=== PATIENT | female | born 1955 | race African-American/Black ===

== ENCOUNTER 2017-02-15 21:30 | Inpatient (IN) | payer OTHER ==
[~2017-02-15] VITALS: Ht 165.1 cm; Wt 113.4 kg
[~2017-02-15 21:30] MED LIST: GLYB5TAB7 PO; INSU3INS6 SQ; NOVOLOG SUBCUT
[2017-02-16] MEDS ORDERED: PIPERACILLIN/TAZOBACTAM 3.375GM/50ML PREMIX IV ONE (01:00)
[2017-02-16 01:32] LABS: HEMATOCRIT 29.4 % (36.0-48.0); HEMOGLOBIN 9.7 g/dL (12.0-16.0); MEAN CORPUSCULAR VOLUME 79.3 fL (81.0-99.0); PLATELET 384 x1000/uL (130-400); RED BLOOD CELL COUNT 3.71 mill/uL (4.2-5.4); RED CELL DISTRIBUTION WIDTH 13.4 % (11.6-14.6)
[2017-02-16] MEDS ORDERED: PIPERACILLIN/TAZ 3.375G PREMIX 50 ML IV NR (03:00)
[2017-02-16] MEDS ORDERED: IPRATROPIUM/ALBUTEROL 0.5-3(2.5)MG/3ML NEB INH PRN (14:15)
[2017-02-16] MEDS ORDERED: HYDROCODONE/ACETAMINOPHEN 5/325MG TABLET PO PRN (14:15)
[2017-02-16] MEDS ORDERED: ONDANSETRON HCL 4MG/2ML VIAL IV PRN (14:15)
[2017-02-16] MEDS ORDERED: ENOXAPARIN 40MG/0.4ML SYR SUBCUT SCH (14:15)
[2017-02-16] MEDS ORDERED: VANCOMYCIN 1 G PREMIX 200 ML IV SCH (14:15)
[2017-02-16 16:25] VITALS: BP 115/59
[2017-02-16] MEDS ORDERED: SPIR25TA4 PO (17:28)
[2017-02-16] MEDS ORDERED: LEVVL SQ (17:28)
[2017-02-16] MEDS ORDERED: ASPI-1159 PO (17:28)
[2017-02-16] MEDS ORDERED: CARV6.2548 PO (17:28)
[2017-02-16] MEDS ORDERED: FURO40TA5 PO (17:28)
[2017-02-16] MEDS ORDERED: HYDR-4134 PO (17:28)
[2017-02-16] MEDS ORDERED: LOSA50TA20 PO (17:28)
[2017-02-16] MEDS: GLYBURIDE 5MG TABLET PO SCH (18:19)
[2017-02-16] MEDS: FUROSEMIDE 40MG TABLET PO SCH (18:19)
[2017-02-16] MEDS: PIPERACILLIN/TAZ 3.375G PREMIX 50 ML IV SCH (18:19)
[2017-02-16] MEDS ORDERED: DEXTROSE 50% WATER 50ML SYRINGE IV PRN (18:30)
[2017-02-16 20:00] VITALS: BP 126/47
[2017-02-16] MEDS ORDERED: VANCOMYCIN 1500MG in DEXTROSE 5% WATER 250ML IV NR (20:00)
[2017-02-16] MEDS: ENOXAPARIN 30MG/0.3ML SYR SUBCUT SCH (20:21)
[2017-02-16] MEDS: BLOOD SUGAR DIAGNOSTIC STRIP TEST SCH (20:26)
[2017-02-16] MEDS: INSULIN LISPRO 100 UNITS/ML SUBCUT SCH (20:50)
[2017-02-17] VITALS: BP 116/57
[2017-02-17] MEDS: PIPERACILLIN/TAZ 3.375G PREMIX 50 ML IV SCH ×3 (01:43→21:08)
[2017-02-17] MEDS: ACETAMINOPHEN 325MG TABLET PO PRN (02:12)
[2017-02-17 04:00] VITALS: BP 98/39
[2017-02-17 05:19] VITALS: BP_SYST 138; BP_SYST 98; BP_DIAS 39; BP_DIAS 98
[2017-02-17] MEDS: BLOOD SUGAR DIAGNOSTIC STRIP TEST SCH ×4 (06:37→21:14)
[2017-02-17] MEDS: INSULIN LISPRO 100 UNITS/ML SUBCUT SCH ×4 (06:45→21:13)
[2017-02-17] MEDS: FUROSEMIDE 40MG TABLET PO SCH ×2 (06:45→17:06)
[2017-02-17 08:00] VITALS: BP 124/56
[2017-02-17] MEDS: GLYBURIDE 5MG TABLET PO SCH ×2 (09:14→17:06)
[2017-02-17] MEDS: ENOXAPARIN 30MG/0.3ML SYR SUBCUT SCH ×2 (09:14→21:08)
[2017-02-17] MEDS ORDERED: DEXT 5%/0.45% NACL 500ML 1,000 ML IV SCH (09:15)
[2017-02-17] MEDS: ASPIRIN 81MG EC TABLET PO SCH (09:15)
[2017-02-17] MEDS: CARVEDILOL 6.25 MG TABLET PO SCH ×2 (09:15→17:06)
[2017-02-17 09:42] LABS: BASOPHILS % 0.7 % (0.0-2.0); EOSINOPHILS % 1.9 % (0.0-5.0); HEMATOCRIT. 28.3 % (36.0-48.0); HEMOGLOBIN. 9.5 g/dL (12.0-16.0); MEAN CORPUSCULAR HEMOGLOBIN 26.5 pg (28.0-32.0); MEAN CORPUSCULAR VOLUME 78.6 fL (81.0-99.0); MONOCYTES % 4.8 % (2.0-8.0); NEUTROPHILS % 84.6 % (40.0-76.0); PLATELET 409 x1000/uL (130-400); RED CELL DISTRIBUTION WIDTH 13.7 % (11.6-14.6)
[2017-02-17 09:47] LABS: INR 1.2; PROTHROMBIN TIME 12.5 sec (9.4-11.6)
[2017-02-17 12:12] VITALS: BP 108/56
[2017-02-17] MEDS: VANCOMYCIN 1 G PREMIX 200 ML IV SCH (12:33)
[2017-02-17] MEDS ORDERED: VANCOMYCIN 1 G PREMIX 200 ML IV SCH (16:00)
[2017-02-17 20:00] VITALS: BP 124/63
[2017-02-18] VITALS: BP 120/51
[2017-02-18 04:00] VITALS: BP 121/56
[2017-02-18] MEDS: PIPERACILLIN/TAZ 3.375G PREMIX 50 ML IV SCH ×2 (04:22→12:31)
[2017-02-18] MEDS: VANCOMYCIN 1 G PREMIX 200 ML IV SCH (06:28)
[2017-02-18] MEDS: BLOOD SUGAR DIAGNOSTIC STRIP TEST SCH ×4 (06:28→21:00)
[2017-02-18] MEDS: FUROSEMIDE 40MG TABLET PO SCH ×2 (06:31→18:05)
[2017-02-18] MEDS: INSULIN LISPRO 100 UNITS/ML SUBCUT SCH ×4 (06:39→22:01)
[2017-02-18 08:00] VITALS: BP 145/65
[2017-02-18] MEDS: GLYBURIDE 5MG TABLET PO SCH ×2 (09:00→18:07)
[2017-02-18] MEDS: ASPIRIN 81MG EC TABLET PO SCH (09:00)
[2017-02-18] MEDS: ENOXAPARIN 30MG/0.3ML SYR SUBCUT SCH ×2 (09:00→21:59)
[2017-02-18] MEDS: CARVEDILOL 6.25 MG TABLET PO SCH ×2 (09:01→18:05)
[2017-02-18] MEDS: LOSARTAN POTASSIUM 25 MG TABLET PO SCH (09:19)
[2017-02-18 12:00] VITALS: BP 126/61
[2017-02-18 14:59] LABS: BASOPHILS % 0.9 % (0.0-2.0); EOSINOPHILS % 2.6 % (0.0-5.0); LYMPHOCYTES % 9.1 % (20.0-50.0); MEAN CORPUSCULAR VOLUME 80.4 fL (81.0-99.0); MEAN PLATELET VOLUME 8.3 fl (7.4-10.4); NEUTROPHILS % 83.4 % (40.0-76.0); PLATELET 454 x1000/uL (130-400); RED BLOOD CELL COUNT 4.26 mill/uL (4.2-5.4); RED CELL DISTRIBUTION WIDTH 13.5 % (11.6-14.6)
[2017-02-18 15:07] LABS: HEMOGLOBIN. 11.5 g/dL (12.0-16.0)
[2017-02-18 15:08] LABS: HEMATOCRIT. 34.2 % (36.0-48.0)
[2017-02-18 16:00] VITALS: BP 141/64
[2017-02-18] MEDS ORDERED: TETANUS, DIPHTHERIA, PERTUSSIS VAC/PF 0.5ML (>7YR OLD) IM ONE (17:00)
[2017-02-18] MEDS: ERTAPENEM SODIUM 1 G in SODIUM CHLORIDE 0.9% 50 ML IV SCH (18:04)
[2017-02-18 20:00] VITALS: BP 128/60
[2017-02-18] MEDS: ASCORBIC ACID 250 MG TABLET PO SCH (21:58)
[2017-02-19] VITALS: BP 125/54
[2017-02-19 04:00] VITALS: BP 115/51
[2017-02-19] MEDS: BLOOD SUGAR DIAGNOSTIC STRIP TEST SCH ×4 (06:15→20:27)
[2017-02-19] MEDS: FUROSEMIDE 40MG TABLET PO SCH ×2 (06:24→17:17)
[2017-02-19] MEDS: INSULIN LISPRO 100 UNITS/ML SUBCUT SCH ×4 (06:25→21:12)
[2017-02-19 06:59] LABS: BASOPHILS % 0.8 % (0.0-2.0); EOSINOPHILS % 3.1 % (0.0-5.0); HEMOGLOBIN. 10.6 g/dL (12.0-16.0); LYMPHOCYTES % 14.5 % (20.0-50.0); MEAN CORPUSCULAR HEMOGLOBIN 26.3 pg (28.0-32.0); MEAN CORPUSCULAR VOLUME 79.6 fL (81.0-99.0); MONOCYTES % 4.3 % (2.0-8.0); NEUTROPHILS % 77.3 % (40.0-76.0); PLATELET 451 x1000/uL (130-400); RED BLOOD CELL COUNT 4.02 mill/uL (4.2-5.4); RED CELL DISTRIBUTION WIDTH 13.5 % (11.6-14.6)
[2017-02-19 07:50] VITALS: BP 133/50
[2017-02-19 08:28] LABS: CARBON DIOXIDE 29 mEq/L (21-32); CHLORIDE 98 mEq/L (98-107)
[2017-02-19] MEDS: ZINC SULFATE 220 MG ( 50 ) CAPSULE PO SCH (09:25)
[2017-02-19] MEDS: LOSARTAN POTASSIUM 25 MG TABLET PO SCH (09:25)
[2017-02-19] MEDS: CARVEDILOL 6.25 MG TABLET PO SCH ×2 (09:25→16:21)
[2017-02-19] MEDS: MULTIVITAMINS,THER W-MINERALS TABLET PO SCH (09:25)
[2017-02-19] MEDS: GLYBURIDE 5MG TABLET PO SCH ×2 (09:26→17:17)
[2017-02-19] MEDS: ENOXAPARIN 30MG/0.3ML SYR SUBCUT SCH ×2 (09:26→21:09)
[2017-02-19] MEDS: ASPIRIN 81MG EC TABLET PO SCH (09:26)
[2017-02-19] MEDS: ASCORBIC ACID 250 MG TABLET PO SCH ×2 (09:26→21:09)
[2017-02-19 11:48] VITALS: BP 115/56
[2017-02-19] MEDS: ERTAPENEM SODIUM 1 G in SODIUM CHLORIDE 0.9% 50 ML IV SCH (15:32)
[2017-02-19] MEDS: ACETAMINOPHEN 325MG TABLET PO PRN (15:32)
[2017-02-19 15:46] VITALS: BP 109/61
[2017-02-19 20:00] VITALS: BP 121/52
[2017-02-20] VITALS: BP 114/56
[2017-02-20 04:00] VITALS: BP 107/57
[2017-02-20] MEDS: BLOOD SUGAR DIAGNOSTIC STRIP TEST SCH ×4 (05:44→21:09)
[2017-02-20] MEDS: FUROSEMIDE 40MG TABLET PO SCH ×2 (05:51→16:49)
[2017-02-20] MEDS: INSULIN LISPRO 100 UNITS/ML SUBCUT SCH ×4 (05:55→21:13)
[2017-02-20 08:00] VITALS: BP 128/60
[2017-02-20] MEDS: GLYBURIDE 5MG TABLET PO SCH ×2 (09:27→16:49)
[2017-02-20] MEDS: ASCORBIC ACID 250 MG TABLET PO SCH ×2 (09:27→21:09)
[2017-02-20] MEDS: LOSARTAN POTASSIUM 25 MG TABLET PO SCH (09:28)
[2017-02-20] MEDS: ZINC SULFATE 220 MG ( 50 ) CAPSULE PO SCH (09:28)
[2017-02-20] MEDS: ASPIRIN 81MG EC TABLET PO SCH (09:28)
[2017-02-20] MEDS: CARVEDILOL 6.25 MG TABLET PO SCH ×2 (09:28→16:49)
[2017-02-20] MEDS: ENOXAPARIN 30MG/0.3ML SYR SUBCUT SCH ×2 (09:29→21:18)
[2017-02-20] MEDS: MULTIVITAMINS,THER W-MINERALS TABLET PO SCH (09:32)
[2017-02-20 12:00] VITALS: BP 123/73
[2017-02-20 15:54] VITALS: BP 136/61
[2017-02-20] MEDS: ERTAPENEM SODIUM 1 G in SODIUM CHLORIDE 0.9% 50 ML IV SCH (16:49)
[2017-02-20 20:00] VITALS: BP 119/56
[2017-02-21] VITALS: BP 132/58
[2017-02-21 04:00] VITALS: BP 135/63
[2017-02-21] MEDS: BLOOD SUGAR DIAGNOSTIC STRIP TEST SCH ×4 (06:35→21:30)
[2017-02-21] MEDS: FUROSEMIDE 40MG TABLET PO SCH ×2 (06:43→16:43)
[2017-02-21] MEDS: INSULIN LISPRO 100 UNITS/ML SUBCUT SCH ×4 (06:48→21:44)
[2017-02-21 08:00] VITALS: BP 115/48
[2017-02-21 08:06] LABS: BASOPHILS % 1.1 % (0.0-2.0); EOSINOPHILS % 4.1 % (0.0-5.0); HEMOGLOBIN. 11.4 g/dL (12.0-16.0); LYMPHOCYTES % 18.9 % (20.0-50.0); MEAN CORPUSCULAR HEMOGLOBIN 26.7 pg (28.0-32.0); MEAN CORPUSCULAR VOLUME 79.8 fL (81.0-99.0); MEAN PLATELET VOLUME 7.9 fl (7.4-10.4); MONOCYTES % 3.5 % (2.0-8.0); NEUTROPHILS % 72.4 % (40.0-76.0); PLATELET 534 x1000/uL (130-400); RED BLOOD CELL COUNT 4.26 mill/uL (4.2-5.4); RED CELL DISTRIBUTION WIDTH 13.6 % (11.6-14.6)
[2017-02-21 08:10] LABS: CARBON DIOXIDE 29 mEq/L (21-32); CHLORIDE 98 mEq/L (98-107)
[2017-02-21] MEDS: MULTIVITAMINS,THER W-MINERALS TABLET PO SCH (08:20)
[2017-02-21] MEDS: ASPIRIN 81MG EC TABLET PO SCH (08:20)
[2017-02-21] MEDS: GLYBURIDE 5MG TABLET PO SCH ×2 (08:20→16:43)
[2017-02-21] MEDS: LOSARTAN POTASSIUM 25 MG TABLET PO SCH (08:20)
[2017-02-21] MEDS: ASCORBIC ACID 250 MG TABLET PO SCH ×2 (08:20→21:43)
[2017-02-21] MEDS: ZINC SULFATE 220 MG ( 50 ) CAPSULE PO SCH (08:20)
[2017-02-21] MEDS: CARVEDILOL 6.25 MG TABLET PO SCH ×2 (08:20→16:43)
[2017-02-21] MEDS: ENOXAPARIN 30MG/0.3ML SYR SUBCUT SCH ×2 (08:21→21:42)
[2017-02-21 12:00] VITALS: BP 141/71
[2017-02-21] MEDS: ERTAPENEM SODIUM 1 G in SODIUM CHLORIDE 0.9% 50 ML IV SCH (15:35)
[2017-02-21 16:00] VITALS: BP 141/68
[2017-02-21 20:00] VITALS: BP 132/71
[2017-02-21] MEDS: INSULIN DETEMIR UD 100 UNITS/ML SYR SUBCUT SCH (21:50)
[2017-02-22] VITALS: BP 116/55
[2017-02-22 04:00] VITALS: BP 128/61
[2017-02-22] MEDS: BLOOD SUGAR DIAGNOSTIC STRIP TEST SCH ×4 (06:06→20:07)
[2017-02-22] MEDS: INSULIN LISPRO 100 UNITS/ML SUBCUT SCH ×4 (06:09→20:07)
[2017-02-22] MEDS: FUROSEMIDE 40MG TABLET PO SCH ×2 (06:39→17:55)
[2017-02-22 08:00] VITALS: BP 118/64
[2017-02-22 09:22] LABS: BASOPHILS % 1.2 % (0.0-2.0); EOSINOPHILS % 3.4 % (0.0-5.0); HEMATOCRIT. 33.8 % (36.0-48.0); HEMOGLOBIN. 11.3 g/dL (12.0-16.0); LYMPHOCYTES % 19.8 % (20.0-50.0); MEAN CORPUSCULAR HEMOGLOBIN 26.5 pg (28.0-32.0); MEAN CORPUSCULAR VOLUME 79.5 fL (81.0-99.0); MEAN PLATELET VOLUME 7.9 fl (7.4-10.4); MONOCYTES % 4.3 % (2.0-8.0); NEUTROPHILS % 71.3 % (40.0-76.0); PLATELET 533 x1000/uL (130-400); RED BLOOD CELL COUNT 4.25 mill/uL (4.2-5.4); RED CELL DISTRIBUTION WIDTH 13.4 % (11.6-14.6)
[2017-02-22] MEDS: CARVEDILOL 6.25 MG TABLET PO SCH ×2 (09:55→17:56)
[2017-02-22] MEDS: ASCORBIC ACID 250 MG TABLET PO SCH ×2 (09:55→20:36)
[2017-02-22] MEDS: MULTIVITAMINS,THER W-MINERALS TABLET PO SCH (09:55)
[2017-02-22] MEDS: LOSARTAN POTASSIUM 25 MG TABLET PO SCH (09:55)
[2017-02-22] MEDS: ASPIRIN 81MG EC TABLET PO SCH (09:55)
[2017-02-22] MEDS: GLYBURIDE 5MG TABLET PO SCH ×2 (09:55→17:55)
[2017-02-22] MEDS: ZINC SULFATE 220 MG ( 50 ) CAPSULE PO SCH (09:55)
[2017-02-22] MEDS: ENOXAPARIN 30MG/0.3ML SYR SUBCUT SCH ×2 (09:56→20:36)
[2017-02-22] MEDS: INSULIN DETEMIR UD 100 UNITS/ML SYR SUBCUT SCH ×2 (10:02→21:42)
[2017-02-22] MEDS ORDERED: DIPHENHYDRAMINE 50MG/ML VIAL IM PRN (11:30)
[2017-02-22 12:00] VITALS: BP 118/86
[2017-02-22] MEDS ORDERED: DIPHENHYDRAMINE 25MG CAPSULE PO PRN (13:15)
[2017-02-22 16:00] VITALS: BP 120/63
[2017-02-22] MEDS: ERTAPENEM SODIUM 1 G in SODIUM CHLORIDE 0.9% 50 ML IV SCH (17:55)
[2017-02-22 20:00] VITALS: BP 140/69
[2017-02-23] VITALS: BP 100/56
[2017-02-23 04:00] VITALS: BP 109/59
[2017-02-23] MEDS: FUROSEMIDE 40MG TABLET PO SCH ×2 (06:33→16:53)
[2017-02-23] MEDS: BLOOD SUGAR DIAGNOSTIC STRIP TEST SCH ×3 (06:35→16:53)
[2017-02-23] MEDS: INSULIN LISPRO 100 UNITS/ML SUBCUT SCH ×3 (06:57→16:50)
[2017-02-23 08:00] VITALS: BP 113/62
[2017-02-23] MEDS: ZINC SULFATE 220 MG ( 50 ) CAPSULE PO SCH (08:40)
[2017-02-23] MEDS: LOSARTAN POTASSIUM 25 MG TABLET PO SCH (08:40)
[2017-02-23] MEDS: GLYBURIDE 5MG TABLET PO SCH ×2 (08:40→16:52)
[2017-02-23] MEDS: ASCORBIC ACID 250 MG TABLET PO SCH (08:40)
[2017-02-23] MEDS: MULTIVITAMINS,THER W-MINERALS TABLET PO SCH (08:41)
[2017-02-23] MEDS: ASPIRIN 81MG EC TABLET PO SCH (08:41)
[2017-02-23] MEDS: ENOXAPARIN 30MG/0.3ML SYR SUBCUT SCH (08:41)
[2017-02-23] MEDS: CARVEDILOL 6.25 MG TABLET PO SCH ×2 (08:41→16:53)
[2017-02-23] MEDS: INSULIN DETEMIR UD 100 UNITS/ML SYR SUBCUT SCH (09:21)
[2017-02-23 12:00] VITALS: BP 97/54
[2017-02-23 16:00] VITALS: BP 102/60
[2017-02-23] MEDS: ERTAPENEM SODIUM 1 G in SODIUM CHLORIDE 0.9% 50 ML IV SCH (16:38)
[2017-02-23 17:19] VITALS: BP 102/60
== END 2017-02-23 19:00 | disposition home health service (06) | DRG 854 ==
LOC: ER 22:13 → 8WST 02-16 12:58 → ENRESERV 02-16 15:35 → CANBEDREQ 02-16 16:11
PROVIDERS: ADMIT Internal Medicine; ATTEND Internal Medicine
PROC: B5161ZA Fluoroscopy of Right Subclavian Vein using Low Osmolar Contrast, Guidance (ICD-10-PCS; 2017-02-17)
PROC: 05H533Z Insertion of Infusion Device into Right Subclavian Vein, Percutaneous Approach (ICD-10-PCS; 2017-02-17)
PROC: B546ZZA Ultrasonography of Right Subclavian Vein, Guidance (ICD-10-PCS; 2017-02-17)
PROC: 0QBL0ZZ Excision of Right Tarsal, Open Approach (ICD-10-PCS; principal; 2017-02-18)
PROC: 0QBL0ZX Excision of Right Tarsal, Open Approach, Diagnostic (ICD-10-PCS; 2017-02-18)
DX: A41.9 Sepsis, unspecified organism (principal); I42.9 Cardiomyopathy, unspecified; E10.42 Type 1 diabetes mellitus with diabetic polyneuropathy; E10.621 Type 1 diabetes mellitus with foot ulcer; Z68.41 Body mass index [BMI] 40.0-44.9, adult; M86.9 Osteomyelitis, unspecified; L97.419 Non-pressure chronic ulcer of right heel and midfoot with unspecified severity; E66.2 Morbid (severe) obesity with alveolar hypoventilation; I11.0 Hypertensive heart disease with heart failure; J45.909 Unspecified asthma, uncomplicated; I10 Essential (primary) hypertension; E10.622 Type 1 diabetes mellitus with other skin ulcer; E10.628 Type 1 diabetes mellitus with other skin complications; E10.69 Type 1 diabetes mellitus with other specified complication; I25.5 Ischemic cardiomyopathy; J44.9 Chronic obstructive pulmonary disease, unspecified; M20.40 Other hammer toe(s) (acquired), unspecified foot; Z79.4 Long term (current) use of insulin; Z88.2 Allergy status to sulfonamides; Z79.899 Other long term (current) drug therapy; Z79.82 Long term (current) use of aspirin
CPT/HCPCS: 36415; 36569; 71010; 73630; 73721; 76937; 77001; 80048; 80053; 80202; 82962; 85025; 85027; 85610; 85651; 86140; 87040; 87070; 87077; 87186; 87205; 88304; 88311; 90715; 93005; 96365; 99285; C1725; C1893; J1335; J1650; J1815; J2543; J3370; J7050; J7060; Q0163

== ENCOUNTER 2017-04-02 18:52 | Inpatient (IN) | payer OTHER ==
[~2017-04-02] VITALS: Ht 165.1 cm; Wt 115.7 kg
[~2017-04-02 18:52] MED LIST changes: +ASPI-1159 PO; +CARV6.2548 PO; +FURO40TA5 PO; +HYDR-4134 PO; +LEVVL SQ; +LOSA50TA20 PO; +SPIR25TA4 PO
[2017-04-02 23:08] LABS: EOSINOPHILS % 2.3 % (0.0-5.0); HEMATOCRIT. 24.6 % (36.0-48.0); LYMPHOCYTES % 11.5 % (20.0-50.0); MEAN CORPUSCULAR HEMOGLOBIN 24.4 pg (28.0-32.0); MEAN CORPUSCULAR VOLUME 75.5 fL (81.0-99.0); MEAN PLATELET VOLUME 7.5 fl (7.4-10.4); MONOCYTES % 5.4 % (2.0-8.0); NEUTROPHILS % 79.8 % (40.0-76.0); PLATELET 724 x1000/uL (130-400); RED BLOOD CELL COUNT 3.26 mill/uL (4.2-5.4); RED CELL DISTRIBUTION WIDTH 15.1 % (11.6-14.6)
[2017-04-02 23:13] LABS: CARBON DIOXIDE 31 mEq/L (21-32); CHLORIDE 100 mEq/L (98-107)
[2017-04-02 23:17] LABS: INR 1.2
[2017-04-03] MEDS ORDERED: CEFEPIME 1,000 MG in DEXTROSE 5% WATER 50 ML IV STA (00:22)
[2017-04-03 07:28] LABS: CLARITY URINE CLEAR (CLEAR); COLOR URINE YELLOW (YELLOW); GLUCOSE URINE NEGATIVE (NEGATIVE); KETONES URINE NEGATIVE (NEGATIVE); LEUKOCYTE ESTERASE URINE NEGATIVE (NEGATIVE); NITRITE URINE NEGATIVE (NEGATIVE); OCCULT BLOOD URINE NEGATIVE (NEGATIVE); PH URINE 6.5 (4.5-8.0); PROTEIN URINE NEGATIVE (NEGATIVE); UROBILINOGEN URINE 0.2 E.U./dL (0.2-1.0)
[2017-04-03 09:18] VITALS: BP 129/33
[2017-04-03 09:22] VITALS: BP 129/33
[2017-04-03] MEDS: HYDRALAZINE HCL 25MG TABLET PO SCH (11:37)
[2017-04-03] MEDS: CARVEDILOL 6.25 MG TABLET PO SCH (11:38)
[2017-04-03] MEDS: LOSARTAN POTASSIUM 50 MG TABLET PO SCH (11:38)
[2017-04-03] MEDS: ASPIRIN 81MG TABLET PO SCH (11:38)
[2017-04-03] MEDS: BLOOD SUGAR DIAGNOSTIC STRIP TEST SCH ×3 (11:40→21:00)
[2017-04-03] MEDS: INSULIN LISPRO 100 UNITS/ML SUBCUT SCH ×3 (11:46→21:00)
[2017-04-03] MEDS: INSULIN DETEMIR UD 100 UNITS/ML SYR SUBCUT SCH (11:47)
[2017-04-03 12:05] VITALS: BP 118/35
[2017-04-03 12:15] VITALS: BP 95/65
[2017-04-03 16:00] VITALS: BP 117/35
[2017-04-03] MEDS: FUROSEMIDE 40MG TABLET PO SCH (17:34)
[2017-04-03 20:00] VITALS: BP 117/59
[2017-04-04] VITALS: BP 113/48
[2017-04-04] MEDS: CARVEDILOL 6.25 MG TABLET PO SCH ×3 (00:11→21:47)
[2017-04-04] MEDS: MEROPENEM 500 MG in SODIUM CHLORIDE 0.9% 50 ML IV SCH ×4 (00:11→21:51)
[2017-04-04] MEDS: INSULIN DETEMIR UD 100 UNITS/ML SYR SUBCUT SCH ×3 (00:12→21:51)
[2017-04-04] MEDS: HYDRALAZINE HCL 25MG TABLET PO SCH ×3 (00:39→21:47)
[2017-04-04 04:00] VITALS: BP 130/49
[2017-04-04] MEDS: BLOOD SUGAR DIAGNOSTIC STRIP TEST SCH ×4 (06:57→20:53)
[2017-04-04] MEDS: FUROSEMIDE 40MG TABLET PO SCH ×2 (06:57→17:33)
[2017-04-04] MEDS: INSULIN LISPRO 100 UNITS/ML SUBCUT SCH ×4 (07:40→21:49)
[2017-04-04 08:00] VITALS: BP 131/44
[2017-04-04] MEDS: ASPIRIN 81MG TABLET PO SCH (09:00)
[2017-04-04] MEDS: LOSARTAN POTASSIUM 50 MG TABLET PO SCH (11:07)
[2017-04-04] MEDS ORDERED: IOHEXOL-350 100 ML BOTTLE ONE (11:47)
[2017-04-04 11:56] VITALS: BP 115/43
[2017-04-04 15:56] VITALS: BP 144/62
[2017-04-04 20:00] VITALS: BP 121/57
[2017-04-05] VITALS: BP 129/48
[2017-04-05 04:00] VITALS: BP 101/52
[2017-04-05] MEDS: MEROPENEM 500 MG in SODIUM CHLORIDE 0.9% 50 ML IV SCH ×2 (06:07→13:31)
[2017-04-05] MEDS: BLOOD SUGAR DIAGNOSTIC STRIP TEST SCH ×2 (06:11→12:42)
[2017-04-05] MEDS: FUROSEMIDE 40MG TABLET PO SCH (06:16)
[2017-04-05] MEDS: INSULIN LISPRO 100 UNITS/ML SUBCUT SCH ×2 (06:17→12:40)
[2017-04-05 07:35] LABS: BASOPHILS % 1.1 % (0.0-2.0); EOSINOPHILS % 4.7 % (0.0-5.0); HEMATOCRIT. 24.6 % (36.0-48.0); LYMPHOCYTES % 16.7 % (20.0-50.0); MEAN CORPUSCULAR HEMOGLOBIN 24.1 pg (28.0-32.0); MEAN CORPUSCULAR VOLUME 74.3 fL (81.0-99.0); MEAN PLATELET VOLUME 7.3 fl (7.4-10.4); MONOCYTES % 5.2 % (2.0-8.0); NEUTROPHILS % 72.3 % (40.0-76.0); PLATELET 760 x1000/uL (130-400); RED BLOOD CELL COUNT 3.31 mill/uL (4.2-5.4)
[2017-04-05 08:00] VITALS: BP 187/101
[2017-04-05] MEDS ORDERED: LIDOCAINE HCL 1% 20ML VIAL (Pyxis) INJ ONE (08:17)
[2017-04-05] MEDS ORDERED: SODIUM BICARBONATE 4% (2.4MEQ) 5ML VIAL IV ONE (08:18)
[2017-04-05] MEDS: ASPIRIN 81MG TABLET PO SCH (09:00)
[2017-04-05] MEDS: HYDRALAZINE HCL 25MG TABLET PO SCH (10:20)
[2017-04-05] MEDS: CARVEDILOL 6.25 MG TABLET PO SCH (10:21)
[2017-04-05] MEDS: LOSARTAN POTASSIUM 50 MG TABLET PO SCH (10:21)
[2017-04-05] MEDS: INSULIN DETEMIR UD 100 UNITS/ML SYR SUBCUT SCH (10:22)
[2017-04-05 12:00] VITALS: BP 108/51
[2017-04-05 14:42] VITALS: BP 134/70
== END 2017-04-05 16:25 | disposition home or self-care (01) | DRG 300 ==
LOC: ER 18:54 → EDBEDREQ 23:55 → EDBEDREQSVC 04-03 00:18 → EDBEDREQ 04-03 00:27 → 8WST 04-03 00:27 → EDBEDREQTM 04-03 00:27 → ENRESERV 04-03 07:52
PROVIDERS: ADMIT Internal Medicine; ATTEND Internal Medicine
PROC: 02HV33Z Insertion of Infusion Device into Superior Vena Cava, Percutaneous Approach (ICD-10-PCS; principal; 2017-04-05)
PROC: B548ZZA Ultrasonography of Superior Vena Cava, Guidance (ICD-10-PCS; 2017-04-05)
DX: E11.51 Type 2 diabetes mellitus with diabetic peripheral angiopathy without gangrene (principal); L03.115 Cellulitis of right lower limb; E11.40 Type 2 diabetes mellitus with diabetic neuropathy, unspecified; E11.621 Type 2 diabetes mellitus with foot ulcer; I42.9 Cardiomyopathy, unspecified; M86.9 Osteomyelitis, unspecified; I50.22 Chronic systolic (congestive) heart failure; Z68.41 Body mass index [BMI] 40.0-44.9, adult; E11.69 Type 2 diabetes mellitus with other specified complication; E66.9 Obesity, unspecified; G47.33 Obstructive sleep apnea (adult) (pediatric); J45.909 Unspecified asthma, uncomplicated; S92.001A Unspecified fracture of right calcaneus, initial encounter for closed fracture; I11.0 Hypertensive heart disease with heart failure; X58.XXXA Exposure to other specified factors, initial encounter; Z79.4 Long term (current) use of insulin; Y93.89 Activity, other specified; Y92.89 Other specified places as the place of occurrence of the external cause; Y99.8 Other external cause status; L97.509 Non-pressure chronic ulcer of other part of unspecified foot with unspecified severity
CPT/HCPCS: 36415; 36569; 75635; 76937; 77001; 80053; 80061; 80202; 81003; 82962; 83605; 85025; 85610; 85651; 86140; 87040; 87070; 87086; 87205; 93923; 93971; 96365; 99285; C1725; J0692; J1815; J2185; J3490; J7050; J7060; Q9967

== ENCOUNTER 2018-05-10 16:10 | Inpatient (IN) | payer OTHER ==
[~2018-05-10] VITALS: Ht 165.1 cm; Wt 107.5 kg
[~2018-05-10 16:10] MED LIST changes: -SPIR25TA4 PO; +SPIR25TA6 PO
[2018-05-10 17:44] LABS: EOSINOPHILS % 2.3 % (0.0-5.0); HEMOGLOBIN. 13.4 g/dL (12.0-16.0); LYMPHOCYTES % 23.3 % (20.0-50.0); MEAN CORPUSCULAR HEMOGLOBIN 28.2 pg (28.0-32.0); MEAN CORPUSCULAR VOLUME 83.9 fL (81.0-99.0); MEAN PLATELET VOLUME 8.5 fl (7.4-10.4); MONOCYTES % 3.8 % (2.0-8.0); NEUTROPHILS % 69.6 % (40.0-76.0); PLATELET 396 x1000/uL (130-400); RED BLOOD CELL COUNT 4.77 mill/uL (4.2-5.4); RED CELL DISTRIBUTION WIDTH 13.3 % (11.6-14.6)
[2018-05-10 17:49] LABS: CHLORIDE 99 mEq/L (98-107); PROTHROMBIN TIME 10.1 sec (9.1-11.1)
[2018-05-10] MEDS ORDERED: SODIUM CHLORIDE 0.9% 1,000 ML IV ONE (19:16)
[2018-05-10] MEDS ORDERED: PIPERACILLIN/TAZ 3.375G PREMIX 50 ML IV ONE (19:30)
[2018-05-10] MEDS ORDERED: VANCOMYCIN 1 G PREMIX 200 ML IV ONE (19:30)
[2018-05-10 22:30] VITALS: BP 149/70
[2018-05-10 23:00] VITALS: BP 149/70
[2018-05-10] MEDS ORDERED: ACETAMINOPHEN 325MG TABLET PO PRN (23:45)
[2018-05-10 23:51] VITALS: BP 125/47
[2018-05-11] MEDS: ENOXAPARIN 30MG/0.3ML SYR SUBCUT SCH ×3 (00:26→20:14)
[2018-05-11] MEDS ORDERED: LOSARTAN POTASSIUM 50 MG TABLET PO NR (01:00)
[2018-05-11] MEDS ORDERED: PIPERACILLIN/TAZ 3.375G PREMIX 50 ML IV SCH (02:00)
[2018-05-11] MEDS: PIPERACILLIN/TAZ 3.375G PREMIX 50 ML IV SCH ×3 (02:18→12:43)
[2018-05-11 04:00] VITALS: BP 103/49
[2018-05-11] MEDS ORDERED: DEXTROSE 50% WATER 50ML SYRINGE IV PRN (06:00)
[2018-05-11] MEDS ORDERED: VANCOMYCIN 1 G PREMIX 200 ML IV SCH (06:00)
[2018-05-11] MEDS: HYDRALAZINE HCL 25MG TABLET PO SCH ×3 (06:38→22:00)
[2018-05-11] MEDS: BLOOD SUGAR DIAGNOSTIC STRIP TEST SCH ×4 (07:20→20:30)
[2018-05-11] MEDS ORDERED: INSULIN LISPRO 100 UNITS/ML SUBCUT SCH (07:50)
[2018-05-11 08:00] VITALS: BP 92/44
[2018-05-11 08:45] VITALS: BP 102/65
[2018-05-11] MEDS: CARVEDILOL 6.25 MG TABLET PO SCH ×2 (09:00→20:13)
[2018-05-11] MEDS: ASPIRIN 81MG TABLET PO SCH (09:04)
[2018-05-11] MEDS: SODIUM CHLORIDE 0.9% INJ 3ML FLUSH IVF SCH ×3 (09:04→22:25)
[2018-05-11] MEDS: INSULIN GLARGINE UD 100 UNITS/ML SYR SUBCUT SCH ×2 (11:07→22:30)
[2018-05-11 12:00] VITALS: BP 125/55
[2018-05-11 13:14] LABS: MEAN CORPUSCULAR HEMOGLOBIN 27.9 pg (28.0-32.0); MEAN CORPUSCULAR VOLUME 83.9 fL (81.0-99.0); PLATELET 326 x1000/uL (130-400); RED BLOOD CELL COUNT 4.29 mill/uL (4.2-5.4); RED CELL DISTRIBUTION WIDTH 13.4 % (11.6-14.6)
[2018-05-11 13:25] LABS: CHLORIDE 100 mEq/L (98-107)
[2018-05-11 16:00] VITALS: BP 142/70
[2018-05-11] MEDS: LOSARTAN POTASSIUM 25 MG TABLET PO SCH (18:40)
[2018-05-11] MEDS: INSULIN LISPRO 100 UNITS/ML SUBCUT SCH ×2 (18:54→20:30)
[2018-05-11 20:00] VITALS: BP 132/59
[2018-05-12] VITALS: BP 133/68
[2018-05-12 01:45] LABS: *AMPHETAMINES SCREEN URINE NEGATIVE (NEGATIVE); *BARBITURATES SCREEN URINE NEGATIVE (NEGATIVE); *BENZODIAZEPINES SCREEN URINE NEGATIVE (NEGATIVE); *COCAINE SCREEN URINE NEGATIVE (NEGATIVE); METHADONE URINE SCREEN NEGATIVE (NEGATIVE); OPIATES URINE SCREEN NEGATIVE (NEGATIVE)
[2018-05-12 01:46] LABS: CANNABINOID URINE SCREEN NEGATIVE (NEGATIVE); PHENCYCLIDINE URINE SCREEN NEGATIVE (NEGATIVE)
[2018-05-12 01:47] LABS: CLARITY URINE CLEAR (CLEAR); COLOR URINE YELLOW (YELLOW); KETONES URINE NEGATIVE (NEGATIVE); LEUKOCYTE ESTERASE URINE NEGATIVE (NEGATIVE); NITRITE URINE NEGATIVE (NEGATIVE); OCCULT BLOOD URINE NEGATIVE (NEGATIVE); PH URINE 5.5 (4.5-8.0); PROTEIN URINE NEGATIVE (NEGATIVE); SPECIFIC GRAVITY URINE 1.014 (1.005-1.030); UROBILINOGEN URINE 0.2 E.U./dL (0.2-1.0)
[2018-05-12 04:00] VITALS: BP 101/70
[2018-05-12 06:28] LABS: EOSINOPHILS % 4.2 % (0.0-5.0); HEMATOCRIT. 35.9 % (36.0-48.0); HEMOGLOBIN. 12.3 g/dL (12.0-16.0); LYMPHOCYTES % 21.8 % (20.0-50.0); MEAN CORPUSCULAR HEMOGLOBIN 28.5 pg (28.0-32.0); MEAN CORPUSCULAR VOLUME 82.8 fL (81.0-99.0); MEAN PLATELET VOLUME 8.2 fl (7.4-10.4); MONOCYTES % 5.2 % (2.0-8.0); NEUTROPHILS % 67.8 % (40.0-76.0); PLATELET 333 x1000/uL (130-400); RED BLOOD CELL COUNT 4.33 mill/uL (4.2-5.4); RED CELL DISTRIBUTION WIDTH 13.1 % (11.6-14.6)
[2018-05-12 06:36] LABS: CHLORIDE 99 mEq/L (98-107)
[2018-05-12 06:48] LABS: HDL CHOLESTEROL 51 mg/dL (40-59); LDL CHOLESTEROL 59 mg/dL (5-100)
[2018-05-12] MEDS: HYDRALAZINE HCL 25MG TABLET PO SCH (06:57)
[2018-05-12] MEDS: BLOOD SUGAR DIAGNOSTIC STRIP TEST SCH ×2 (07:01→12:53)
[2018-05-12 08:00] VITALS: BP 151/60
[2018-05-12] MEDS: LOSARTAN POTASSIUM 25 MG TABLET PO SCH (08:25)
[2018-05-12] MEDS: ASPIRIN 81MG TABLET PO SCH (08:25)
[2018-05-12] MEDS: CARVEDILOL 6.25 MG TABLET PO SCH (08:26)
[2018-05-12] MEDS: INSULIN LISPRO 100 UNITS/ML SUBCUT SCH ×2 (08:28→12:53)
[2018-05-12] MEDS: ENOXAPARIN 30MG/0.3ML SYR SUBCUT SCH (08:46)
[2018-05-12] MEDS ORDERED: FUROSEMIDE 20MG TABLET PO SCH (09:00)
[2018-05-12] MEDS ORDERED: SODIUM BICARBONATE 4% (2.4MEQ) 5ML VIAL IV ONE (09:03)
[2018-05-12] MEDS ORDERED: LIDOCAINE HCL 1% 20ML VIAL (Pyxis) INJ ONE (09:03)
[2018-05-12] MEDS ORDERED: IOHEXOL-300 50 ML BOTTLE IV ONE (10:24)
[2018-05-12] MEDS: INSULIN GLARGINE UD 100 UNITS/ML SYR SUBCUT SCH (11:25)
[2018-05-12 12:00] VITALS: BP 129/69
[2018-05-12] MEDS ORDERED: MAGNESIUM 1 G PREMIX 100 ML IV SCH (13:30)
[2018-05-12 16:00] VITALS: BP 129/59
[2018-05-12 16:19] VITALS: BP 129/59
== END 2018-05-12 17:20 | disposition home or self-care (01) | DRG 562 ==
LOC: ER 16:10 → 6EST 19:43 → ENRESERV 20:17
PROVIDERS: ADMIT Internal Medicine; ATTEND Internal Medicine
PROC: 05H633Z Insertion of Infusion Device into Left Subclavian Vein, Percutaneous Approach (ICD-10-PCS; principal; 2018-05-12)
PROC: B5171ZA Fluoroscopy of Left Subclavian Vein using Low Osmolar Contrast, Guidance (ICD-10-PCS; 2018-05-12)
PROC: B547ZZA Ultrasonography of Left Subclavian Vein, Guidance (ICD-10-PCS; 2018-05-12)
DX: S92.191A Other fracture of right talus, initial encounter for closed fracture (principal); I50.23 Acute on chronic systolic (congestive) heart failure; L03.115 Cellulitis of right lower limb; M86.671 Other chronic osteomyelitis, right ankle and foot; I42.0 Dilated cardiomyopathy; S82.491A Other fracture of shaft of right fibula, initial encounter for closed fracture; I11.0 Hypertensive heart disease with heart failure; E11.610 Type 2 diabetes mellitus with diabetic neuropathic arthropathy; W18.39XA Other fall on same level, initial encounter; E11.65 Type 2 diabetes mellitus with hyperglycemia; E11.40 Type 2 diabetes mellitus with diabetic neuropathy, unspecified; E83.42 Hypomagnesemia; G47.33 Obstructive sleep apnea (adult) (pediatric); E11.36 Type 2 diabetes mellitus with diabetic cataract; E66.9 Obesity, unspecified; R06.89 Other abnormalities of breathing; S92.001A Unspecified fracture of right calcaneus, initial encounter for closed fracture; S92.211A Displaced fracture of cuboid bone of right foot, initial encounter for closed fracture; E11.69 Type 2 diabetes mellitus with other specified complication; Z82.49 Family history of ischemic heart disease and other diseases of the circulatory system; Z91.19 Patient's noncompliance with other medical treatment and regimen; Z98.41 Cataract extraction status, right eye; Z79.4 Long term (current) use of insulin; Z88.2 Allergy status to sulfonamides; Y93.89 Activity, other specified; Y92.89 Other specified places as the place of occurrence of the external cause; Y99.8 Other external cause status; Z83.3 Family history of diabetes mellitus; Z68.39 Body mass index [BMI] 39.0-39.9, adult
CPT/HCPCS: 36415; 36569; 71045; 73630; 73721; 75827; 76937; 77001; 80048; 80061; 80202; 80305; 82962; 83036; 83605; 83735; 83880; 85027; 93005; 93306; 93923; 93971; 99285; C1725; J1650; J1815; J2543; J3370; J3475; J3490; J7030; J7050; Q9967

== ENCOUNTER 2020-01-05 18:55 | Emergency (ER) | payer OTHER ==
[~2020-01-05] VITALS: Ht 165.1 cm; Wt 107.0 kg
[~2020-01-05 18:55] MED LIST changes: -ASPI-1159 PO; +ASPI-1497 PO; -FURO40TA5 PO; -INSU3INS6 SQ; -LEVVL SQ; -LOSA50TA20 PO; -NOVOLOG SUBCUT; -SPIR25TA6 PO
[2020-01-05] MEDS ORDERED: CEPHALEXIN 250MG CAPSULE PO ONE (22:30)
[2020-01-06 00:53] LABS: BASOPHILS % 0.9 % (0.0-2.0); EOSINOPHILS % 1.5 % (0.0-5.0); HEMATOCRIT. 36.2 % (36.0-48.0); HEMOGLOBIN. 12.3 g/dL (12.0-16.0); LYMPHOCYTES % 20.3 % (20.0-50.0); MEAN CORPUSCULAR HEMOGLOBIN 27.7 pg (28.0-32.0); MEAN CORPUSCULAR VOLUME 81.6 fL (81.0-99.0); MEAN PLATELET VOLUME 8.6 fl (7.4-10.4); MONOCYTES % 4.8 % (2.0-8.0); NEUTROPHILS % 72.5 % (40.0-76.0); PLATELET 307 x1000/uL (130-400); RED BLOOD CELL COUNT 4.43 mill/uL (4.2-5.4); RED CELL DISTRIBUTION WIDTH 13.6 % (11.6-14.6)
[2020-01-06 01:00] LABS: CHLORIDE 99 mEq/L (98-107)
[2020-01-06 03:25] VITALS: BP 158/74
== END 2020-01-06 03:27 | disposition home or self-care (01) ==
LOC: ER 18:55
DX: L03.114 Cellulitis of left upper limb (principal); E11.9 Type 2 diabetes mellitus without complications; I11.0 Hypertensive heart disease with heart failure; I50.9 Heart failure, unspecified; Z79.82 Long term (current) use of aspirin; Z98.890 Other specified postprocedural states; Z88.2 Allergy status to sulfonamides
CPT/HCPCS: 36415; 73120; 80053; 84145; 85025; 86140; 93005; 93971; 99285

== ENCOUNTER 2021-02-21 15:31 | Emergency (ER) | payer MEDICARE, BC ==
[~2021-02-21] VITALS: Ht 165.1 cm; Wt 90.0 kg
[2021-02-21] MEDS ORDERED: CEPHALEXIN 250MG CAPSULE PO ONE (16:30)
[2021-02-21] MEDS ORDERED: ACETAMINOPHEN 325MG TABLET PO ONE (16:30)
[2021-02-21] MEDS ORDERED: TOPUD MT (17:09)
[2021-02-21] MEDS ORDERED: CEPH500C2 MT (17:09)
[2021-02-21 17:34] VITALS: BP 149/73
== END 2021-02-21 17:34 | disposition home or self-care (01) ==
LOC: ER 15:31
DX: L03.114 Cellulitis of left upper limb (principal); I11.0 Hypertensive heart disease with heart failure; I50.9 Heart failure, unspecified; E11.9 Type 2 diabetes mellitus without complications; Z88.2 Allergy status to sulfonamides; Z88.8 Allergy status to other drugs, medicaments and biological substances; Z88.9 Allergy status to unspecified drugs, medicaments and biological substances; Z79.82 Long term (current) use of aspirin; Z79.899 Other long term (current) drug therapy; Z98.890 Other specified postprocedural states
CPT/HCPCS: 73110; 82962; 99283